=== PATIENT | female | born 1955 | race African-American/Black ===

== ENCOUNTER → 2020-11-20 | Outpatient (CLI) | payer BC ==
--- NOTE | 2020-11-20 17:08 | RAD ---
EXAM: 1. Lumbar spine 3 views. 2. Left femur 2 views. HISTORY: Low back and left femoral pain. COMPARISON: None. FINDINGS: Grade 1 anterolisthesis at L4-5 measures 7 mm. No lumbar fractures are identified. Degenera tive disc disease is moderate at L5-S1 and mild L4-5. It also appears moderate within the lower thora cic spine. Facet osteoarthritis is a moderate to severe from L4 through S1. No fractures are identified within the left femur. The joint spaces of the left knee and hip appear m aintained. There is mildly decreased femoral head/neck offset anteriorly. There are moderate degenerative changes at the pubic symphysis. Atherosclerotic calcifications are no jacky. IMPRESSION: 1. Grade 1 anterolisthesis at L4-5 from facet osteoarthritis. 2. Degenerative disc disease is moderate at L5-S1 and within the lower thoracic spine. It is mild at L4-5. Electronically signed by: Kimberly Trinidad MD (11/20/2020 5:06 PM) [id number]
== END ==
LOC: PMG 11:20
PROVIDERS: ATTEND Family Medicine
DX: M47.817 Spondylosis without myelopathy or radiculopathy, lumbosacral region (principal); M43.16 Spondylolisthesis, lumbar region; M51.37 Other intervertebral disc degeneration, lumbosacral region; M47.814 Spondylosis without myelopathy or radiculopathy, thoracic region
CPT/HCPCS: 72100; 73552